=== PATIENT | male | born 1990 | race Two or more races ===

== ENCOUNTER 2023-02-24 08:28 | Emergency (ER) | payer OTHER ==
[~2023-02-24] VITALS: Ht 182.9 cm; Wt 101.8 kg
[2023-02-24 08:29] VITALS: BP 150/87; PULSE 71; RESP 16; TEMP 98; O2SAT 99
[2023-02-24] MEDS ORDERED: HYDROcodone/acetaminophen 10/325mg tab PO ONE (09:00)
--- NOTE | 2023-02-24 09:05 | NUR ---
post reduction xray ordered. pt tolerated reduction well
== END 2023-02-24 09:40 | disposition home or self-care (01) ==
LOC: ER 08:29
DX: S43.004A Unspecified dislocation of right shoulder joint, initial encounter (principal); W19.XXXA Unspecified fall, initial encounter; Y93.89 Activity, other specified; Y92.89 Other specified places as the place of occurrence of the external cause; Y99.8 Other external cause status
CPT/HCPCS: 23650; 73030; 99284; A4565